=== PATIENT | female | born 1935 | race Caucasian/White ===

== ENCOUNTER 2016-10-05 15:57 | Emergency (ER) | payer OTHER, MEDICARE ==
[~2016-10-05] VITALS: Ht 162.6 cm; Wt 86.2 kg
[~2016-10-05 15:57] MED LIST: GOLYTELY 40004000 ML PO
--- NOTE | 2016-10-05 17:34 | ED NECK/BACK PAIN COMPLAINT ---
History of Present Illness General Chief Complaint: Low Back Pain/Injury Stated Complaint: LEFT SIDED SIATIC PAIN PER PT Source: patient, family, old records Exam Limitations: no limitations Vital Signs & Intake/Output Vital Signs & Intake/Output Vital Signs Date Time Temp Pulse Resp B/P Pulse O2 O2 Flow FiO2 Ox Delivery Rate 10/05 1826 78 18 149/75 97 Room Air 10/05 1812 98 Room Air 10/05 1615 98.0 84 18 135/84 100 Room Air Allergies Coded Allergies: MDX - Amoxicillin (AMOXICILLIN) (Mild, HIVES 09/07/15) MDX - Clavulanic Acid (From AUGMENTIN) (Mild, HIVES 09/07/15) MDX - PCN (penicillin) (PCN (PENICILLIN)) (Mild, HIVES 09/07/15) MDX - SULFA (sulfonamide) (SULFA (SULFONAMIDE)) (Mild, HIVES 09/07/15) Reconcile Medications Ketorolac Tromethamine 10 MG TABLET 1 TAB PO TID PRN pain Methylprednisolone. (Medrol) 4 MG TAB.DS.PK 1 DP PO AD radiculopathy 6 on day 1 then reduce by one tablet daily until gone PEG 3350/NA SULF,BICARB,CL/KCL (Golytely Solution) 4,000 ML PDS 0 PO SEE ADMIN CRITERIA PRN obstipation 1 cup every 10 minutes until rectal effluent runs clear Tramadol HCl (Ultram) 50 MG TABLET 1 TAB PO TID PRN pain Triage Note: PT TO ED FOR L SIDED "SCIATICA PAIN" REPORTING SHE HAS STRUGGLED WITH R SIDED BACK PAIN "BUT THIS STARTED LAST NIGHT AND I TRIED ADVIL AND ITS NOT GETTING BETTER". DENIES ANY URINARY S/S, NO CVA TENDERNESS, PAIN ON PALPATION, DENIES LOSS OF B/B. Triage Nurses Notes Reviewed? yes Onset: Abrupt Duration: day(s): (2), constant, waxing and waning Timing: recent history Quality/Severity: moderate (ACHING) Location: paraspinous muscles Radiation: buttocks, upper legs Method of Injury: unknown Loss of Consciousness: no loss of consciousness Modifying Factors: movement, rest Associated Symptoms: DENIES HPI: This is a 81-year-old female history of hypertension high cholesterol, herniated disc and sciatica who presents complaining with 2 day history of left lower back pain came on yesterday while at rest. The patient denies any known injury or specific trauma. She states the pain is radiating down into her left knee however denies any leg swelling numbness or tingling. She took Aleve last night without improvement however is not taken anything today. There's been no recent trauma fall or other injury. She denies any abdominal pain urinary or bowel incontinence dysuria urgency frequency. No fever no chills. She has not sought care for the symptoms until today. (ALYSSA NGUYEN) Past History Travel History Traveled to [place] past 21 day No Medical History Any Pertinent Medical History? see below for history Neurological: NONE EENT: NONE Cardiovascular: hypertension, hyperlipidemia Respiratory: NONE Gastrointestinal: constipation Hepatic: NONE Renal: NONE Musculoskeletal: CHRONIC BACK PAIN Psychiatric: NONE Endocrine: HYPOTHYROID Blood Disorders: NONE Cancer(s): NONE Surgical History Surgical History: non-contributory Psychosocial History What is your primary language Divehi Tobacco Use: Never used ETOH Use: denies use Illicit Drug Use: denies illicit drug use Family History Hx Contributory? No (ALYSSA NGUYEN) Review of Systems Review of Systems Constitutional: Reports: see HPI. All Other Systems: Reviewed and Negative Comments Review of systems: See HPI, All other systems negative. Constitutional, no chills no fever, no malaise HEENT: No visual changes no sore throat no congestion, no ear pain Cardiovascular: No chest pain , no palpitation Skin, no jaundice no rashes, no change in skin Respiratory: No dyspnea no cough no sputum GI: No nausea no vomiting, no diarrhea, : No dysuria No hematuria, no frequency, no discharge Muscle skeletal: No joint pain, no joint swelling, back pain, no neck pain, Neurologic: No numbness no headache Psych: No stress Heme/endocrine: No bruising no bleeding Immunology: No lymphadenopathy (ALYSSA NGUYEN) Physical Exam Physical Exam General Appearance: well developed/nourished, no apparent distress, alert, awake , comfortable Neck: normal inspection, supple, full range of motion Comments: Well-developed well-nourished person in no acute distress HEENT: Normal EENT exam; PERRL, EOMI, HEAD is atraumatic. moist mucous membranes. Neck: Supple, no lymphadenopathy, normal range of motion without pain or tenderness Back: Left paralumbar muscle tenderness palpation no midline tenderness no ecchymosis no CVA tenderness. Full range of motion Cardiovascular: Regular rate and rhythms no murmurs rubs Respiratory: Chest nontender.There were no bony deformities, no asymmetry. No respiratory distress. Patient speaking in full complete sentences. Breath sounds clear to auscultation bilaterally: NO W/R/R Abdomen: Soft, nontender nondistended, no appreciable organomegaly. Normal bowel sounds. No rebound/guarding, No appreciable enlargement of the abdominal aorta, No ascites. Extremity: No edema, positive straight leg raise bilaterally full range of motion of extremities, normal and equal pulses bilaterally, 5 out of 5 strength noted to bilateral upper and lower extremities Neuro: Alert oriented x3, motor sensory normal. There were no obvious focal neurologic abnormalities. Skin: No appreciable rash on exposed skin, skin is warm and dry. Psych: Mood and affect is normal, memory and judgment is normal. (WILLIAMS SIMENTAL,ALYSSA) Progress Differential Diagnosis: cauda equina syn, herniated disc, myofascial strain, pyelo/UTI, sciatica, spinal cord inj, T/L spine injury, ureterolithiasis Plan of Care: Current Medications Sig/Fred Start time Last Medication Dose Stop Time Status Admin Ketorolac 30 MG ONCE ONE 10/05 1800 UNVr Tromethamine 10/05 1800 (Toradol) Tramadol HCl 50 MG ONCE ONE 10/05 1800 UNVr (Ultram) 10/05 1800 Patient clinically looks well. Patient has no evidence of radiculopathy. No urinary bowel dysfunction. No numbness in the genital area. Strength intact. Gross sensation intact. Patient resting comfortably and in no apparent distress. Pain is worse with range of motion. Pain is reproducible IN back with no bruising or ecchymosis noted. . Patient is to follow-up with primary care doctor. May need aREPEAT MRI of the lower back at some point time. The patient provided for follow-up with neurosurgeon. No concerns for cauda equina at this point time. I considered this diagnosis but patient does not have any symptoms consistent with cauda equina. Patient has no secondary causes of back pain. No cardiac, pulmonary, or abdominal complaints. No abdominal pain on exam. Cardiac pulmonary exam within normal limits. No rashes, afebrile, denies recent weight loss, dizziness, lightheadedness MRI from 2015 reviewed IMPRESSION: 1. Multilevel lumbar spondylosis and mild dextroconvex lower lumbar scoliosis. Edematous endplate changes are present asymmetrically on the right L1-L2 and asymmetrically on the left at L3-L4. 2. L1-L2: Asymmetric right-sided disc osteophyte complex resulting in high-grade right foraminal stenosis. 3. L4-L5: Grade 1 degenerative anterolisthesis. Asymmetric left-sided disc osteophyte complex narrowing the left subarticular recess likely contacting the traversing left L5 nerve root and resulting in moderate left foraminal stenosis contacting the exiting left L4 nerve root. 4. L5-S1: Multifactorial narrowing of both subarticular recesses contacting the traversing S1 nerve roots, right more than left. [id number] bilateral foraminal stenosis contacting the exiting L5 nerve roots. DICTATED BY: SAMIR WIGGINS MD DATE/TIME DICTATED:05/10/151428 MINE ADMINISTRATOR SUPERVISOR:SRAAH DATE/TIME TRANSCRIBED:05/10/151428 CONFIDENTIAL, DO NOT COPY WITHOUT APPROPRIATE AUTHORIZATION. <Electronically signed in Other Vendor System> SIGNED BY: SAMIR WIGGINS MD 05/10/151651 (ALYSSA NGUYEN) Departure Departure Time of Disposition: 1754 Disposition: HOME OR SELF CARE Condition: Stable Clinical Impression Primary Impression: Lumbar radiculopathy Referrals: LANI TIRADO,NIRAJ Baltazar (PCP/Family) Additional Instructions: Follow-up with your primary care physician as well as spine physician Dr. Dailey this week. Tramadol as directed Medrol Dosepak and Toradol as directed. Interchange ice and heat return to the emergency room anytime sooner if her symptoms worsen. These prescriptions were sent to [facility] Departure Forms: Customer Survey General Discharge Information Prescriptions: Current Visit Scripts Tramadol HCl (Ultram) 1 TAB PO TID PRN pain #10 TAB Methylprednisolone. (Medrol) 1 DP PO AD #1 DP 6 on day 1 then reduce by one tablet daily until gone Ketorolac Tromethamine 1 TAB PO TID PRN pain #10 TAB (ALYSSA NGUYEN) PA/CONCRETE BLOCK LAYER Co-Sign Statement Statement: ED Attending supervision documentation- [X] I saw and evaluated the patient. I have also reviewed all the pertinent lab results and diagnostic results. I agree with the findings and the plan of care as documented in the PA's/CONCRETE BLOCK LAYER's documentation. [] I have reviewed the ED Record and agree with the PA's/CONCRETE BLOCK LAYER's documentation. [] Additions or exceptions (if any) to the PAs/CONCRETE BLOCK LAYER's note and plan are summarized below: [] (ZANDER TIRADO,ESTEFANIA Ferguson)
[2016-10-05] MEDS ORDERED: MEDROL4 M2 PO (17:58)
[2016-10-05] MEDS ORDERED: KETOROLAC TROME10 M1 PO (17:58)
[2016-10-05] MEDS ORDERED: ULTRAM50 M1 PO (17:58)
[2016-10-05 18:26] VITALS: BP 149/75
== END 2016-10-05 18:35 ==
LOC: ERH 15:57
DX: M54.16 Radiculopathy, lumbar region (principal)
CPT/HCPCS: 96372; J1885